=== PATIENT | female | born 1995 | race Two or more races ===

== ENCOUNTER 2019-12-12 05:53 | Inpatient (IN) | payer OTHER ==
[~2019-12-12] VITALS: Ht 170.2 cm; Wt 96.4 kg
[2019-12-12] MEDS ORDERED: METOCLOPRAMIDE 5 MG/ML, 2ML IV ONE (06:30)
[2019-12-12] MEDS ORDERED: SODIUM CITRATE/CITRIC ACID 30 ML UDC PO ONE (06:30)
[2019-12-12] MEDS ORDERED: ONDANSETRON 2MG/ML, 2ML IVPush ONE (06:30)
[2019-12-12] MEDS ORDERED: LACTATED RINGERS 1,000 ML IVBOLUS ONE ×2 (06:30→07:30)
[2019-12-12] MEDS ORDERED: NEWBORN KIT ONE (06:35)
[2019-12-12] MEDS ORDERED: OXYTOCIN 30U/ 0.9% NaCL 500ML 500 ML ONE (06:36)
[2019-12-12] MEDS ORDERED: METOCLOPRAMIDE 5 MG/ML, 2ML ONE (06:36)
[2019-12-12 06:51] LABS: BASOPHILS % (AUTO) 1 % (0-1); EOSINOPHILS % (AUTO) 1 % (1-7); LYMPHOCYTES % (AUTO) 32 % (22-44); MEAN CORPUSCULAR HEMOGLOBIN 29.9 pg (27.0-34.8); MEAN CORPUSCULAR HGB CONC 33.5 g/dL (32.4-35.8); MONOCYTES % (AUTO) 6 % (2-9); NEUTROPHILS % (AUTO) 60 % (42-75); PLATELET COUNT 165 x10^3/uL (130-400); RED BLOOD COUNT 4.14 x10^6/uL (3.82-5.3); RED CELL DISTRIBUTION WIDTH 14.1 % (9.6-15.2)
[2019-12-12] MEDS ORDERED: PLEASE ENTER HEIGHT AND WEIGHT MC SCH (07:00)
[2019-12-12] MEDS ORDERED: morphine SULFATE/PF 0.5 MG/ML, 10ML ONE (07:07)
[2019-12-12 07:11] LABS: MD NO
[2019-12-12] MEDS ORDERED: EPINEPHRINE 1 MG/ML, 1ML ONE (07:11)
[2019-12-12] MEDS: LACTATED RINGERS 1,000 ML IV SCH ×6 (07:30→18:00)
[2019-12-12] MEDS ORDERED: CEFAZOLIN 1,000 MG ONE (07:57)
[2019-12-12] MEDS ORDERED: PHENYLEPHRINE 10 MG/ML ONE (07:57)
[2019-12-12] MEDS ORDERED: OXYTOCIN 10 UNITS/ML, 1ML ONE (07:57)
[2019-12-12] MEDS ORDERED: ONDANSETRON 2MG/ML, 2ML ONE ×2 (07:57→08:11)
[2019-12-12] MEDS ORDERED: EPHEDRINE 50 MG/ML, 1ML ONE (07:57)
[2019-12-12] MEDS ORDERED: WATER-INJECTION,STERILE 10 ML IV ONE (07:57)
[2019-12-12] MEDS ORDERED: MISOPROSTOL 200 MCG TABLET PR PRN (08:00)
[2019-12-12] MEDS ORDERED: OXYcodone/APAP 5/325MG TABLET PO PRN (08:00)
[2019-12-12] MEDS ORDERED: ACETAMINOPHEN 325 MG TABLET PO PRN ×2 (08:00)
[2019-12-12] MEDS ORDERED: ONDANSETRON 2MG/ML, 2ML IV PRN (08:00)
[2019-12-12] MEDS ORDERED: DIPHENHYDRAMINE 50 MG/ML, 1ML ONE (08:31)
[2019-12-12] MEDS: PRENATAL VIT/IRON/FA 1 EACH TABLET PO SCH (09:00)
[2019-12-12] MEDS: OXYTOCIN 30U/ 0.9% NaCL 500ML 500 ML IV SCH ×2 (10:08→18:00)
[2019-12-12 10:40] VITALS: BP 99/64
[2019-12-12] MEDS: KETOROLAC 30 MG/1 ML IV SCH ×3 (13:57→20:26)
[2019-12-12 15:40] LABS: BASOPHILS % (AUTO) 0 % (0-1); EOSINOPHILS % (AUTO) 0 % (1-7); LYMPHOCYTES % (AUTO) 13 % (22-44); MEAN CORPUSCULAR HEMOGLOBIN 29.4 pg (27.0-34.8); MEAN CORPUSCULAR HGB CONC 32.7 g/dL (32.4-35.8); MEAN PLATELET VOLUME 8.8 fL (7.4-10.4); MONOCYTES % (AUTO) 5 % (2-9); NEUTROPHILS % (AUTO) 82 % (42-75); PLATELET COUNT 155 x10^3/uL (130-400); RED BLOOD COUNT 4.23 x10^6/uL (3.82-5.3); RED CELL DISTRIBUTION WIDTH 13.9 % (9.6-15.2)
[2019-12-12 16:00] VITALS: BP 99/67
[2019-12-12 16:29] LABS: MD SCAN
[2019-12-12] MEDS: OXYcodone IR 5MG TABLET PO PRN (16:46)
[2019-12-12 20:00] VITALS: BP 98/63
[2019-12-13 00:15] VITALS: BP 101/64
[2019-12-13] MEDS: KETOROLAC 30 MG/1 ML IV SCH ×4 (02:06→20:03)
[2019-12-13] MEDS: LACTATED RINGERS 1,000 ML IV SCH ×6 (03:30→14:00)
[2019-12-13 04:00] VITALS: BP 88/56
[2019-12-13] MEDS: OXYTOCIN 30U/ 0.9% NaCL 500ML 500 ML IV SCH (04:00)
[2019-12-13] MEDS: DOCUSATE 100 MG CAPSULE PO PRN ×2 (08:04→20:03)
[2019-12-13] MEDS: PRENATAL VIT/IRON/FA 1 EACH TABLET PO SCH (08:04)
[2019-12-13 08:10] VITALS: BP 102/72
[2019-12-13] MEDS: SIMETHICONE 80 MG CHEW TAB PO PRN ×3 (10:48→20:03)
[2019-12-13] MEDS ORDERED: DIPH,PERTUSS(ACELL),TET VAC/PF NC IM-VACC ONE (16:30)
[2019-12-13 20:00] VITALS: BP 119/77
[2019-12-14] MEDS: KETOROLAC 30 MG/1 ML IV SCH (02:15)
[2019-12-14] MEDS: OXYcodone IR 5MG TABLET PO PRN ×4 (02:23→20:08)
[2019-12-14] MEDS: SIMETHICONE 80 MG CHEW TAB PO PRN ×2 (02:23→09:05)
[2019-12-14 07:45] VITALS: BP 99/64
[2019-12-14] MEDS: DOCUSATE 100 MG CAPSULE PO PRN ×2 (09:05→20:07)
[2019-12-14] MEDS: PRENATAL VIT/IRON/FA 1 EACH TABLET PO SCH (09:05)
[2019-12-14] MEDS: OXYTOCIN 30U/ 0.9% NaCL 500ML 500 ML IV SCH (10:13)
[2019-12-14 20:00] VITALS: BP 126/86
[2019-12-14] MEDS: IBUPROFEN 600 MG TABLET PO PRN (20:07)
[2019-12-15] MEDS: IBUPROFEN 600 MG TABLET PO PRN ×2 (02:33→09:00)
[2019-12-15] MEDS: OXYcodone IR 5MG TABLET PO PRN (02:34)
[2019-12-15 08:30] VITALS: BP 116/80
[2019-12-15] MEDS: SIMETHICONE 80 MG CHEW TAB PO PRN (09:00)
[2019-12-15] MEDS: PRENATAL VIT/IRON/FA 1 EACH TABLET PO SCH (09:00)
[2019-12-15] MEDS: DOCUSATE 100 MG CAPSULE PO PRN (09:00)
[2019-12-15] MEDS ORDERED: OXYC-302 PO (12:15)
[2019-12-15] MEDS ORDERED: IBUP200T49 PO (12:16)
== END 2019-12-15 16:03 | disposition home or self-care (01) | DRG 788 ==
LOC: LDIP 05:53 → 2NW 10:33
PROVIDERS: ADMIT Obstetrics & Gynecology; ATTEND Obstetrics & Gynecology
PROC: 10D00Z1 Extraction of Products of Conception, Low, Open Approach (ICD-10-PCS; principal; 2019-12-12)
DX: O34.211 Maternal care for low transverse scar from previous cesarean delivery (principal); Z3A.39 39 weeks gestation of pregnancy; Z37.0 Single live birth; Z20.828 Contact with and (suspected) exposure to other viral communicable diseases
CPT/HCPCS: 36415; 85025; 86592; 86850; 86900; 87635; 90715; G0378; J0171; J0690; J1885; J2274; J2405; J1200; J2370; J2590; J2765; J7120

== ENCOUNTER 2020-10-20 09:40 | Emergency (ER) | payer MEDICAID, OTHER ==
[~2020-10-20] VITALS: Ht 175.3 cm; Wt 103.5 kg
[~2020-10-20 09:40] MED LIST: IBUP200T49 PO; OXYC1TAB14 PO
[2020-10-20 10:25] LABS: BASOPHILS % (AUTO) 0 % (0-1); EOSINOPHILS % (AUTO) 3 % (1-7); LYMPHOCYTES % (AUTO) 27 % (22-44); MEAN CORPUSCULAR HEMOGLOBIN 29.4 pg (27.0-34.8); MEAN CORPUSCULAR HGB CONC 33.9 g/dL (32.4-35.8); MEAN PLATELET VOLUME 8.1 fL (7.4-10.4); MONOCYTES % (AUTO) 6 % (2-9); NEUTROPHILS % (AUTO) 63 % (42-75); PLATELET COUNT 284 x10^3/uL (130-400); RED BLOOD COUNT 4.73 x10^6/uL (3.82-5.3); RED CELL DISTRIBUTION WIDTH 13.9 % (9.6-15.2)
[2020-10-20 10:36] LABS: ALBUMIN 3.7 g/dL (3.4-5.0); ANION GAP 6 mmol/L (5-15); CALCIUM 8.8 mg/dL (8.5-10.1); CHLORIDE 109 mmol/L (98-107); CREATININE 0.73 mg/dL (0.55-1.02)
--- NOTE | 2020-10-20 13:49 | NUR ---
NAX 1
--- NOTE | 2020-10-20 14:01 | NUR ---
ASSUMED CARE OF PATIENT. PT C/O BILATERAL LOWER ABD PAIN, LOW BACK PAIN AND VB. PT REPORTS SHE BELIEVES SHE IS ABOUT 6 WEEKS . VS STABLE. NO ACUTE DISTRESS NOTED. CALL LIGHT IN PLACE. WILL CONTINUE TO MONITOR.
[2020-10-20 14:28] VITALS: BP 113/72
== END 2020-10-20 15:46 | disposition home or self-care (01) ==
LOC: ED 13:51
DX: O03.9 Complete or unspecified spontaneous abortion without complication (principal); Z3A.01 Less than 8 weeks gestation of pregnancy
CPT/HCPCS: 36415; 76801; 80048; 82040; 84702; 85025; 86901; 99284